=== PATIENT | female | born 1985 | race Caucasian/White ===

== ENCOUNTER 2018-03-10 21:43 | Emergency (ER) | payer SELFPAY ==
[2018-03-10] MEDS ORDERED: Lidocaine 2% Viscous Solution 15 ML Cup PO ONE (22:02)
[2018-03-10] MEDS ORDERED: Acetaminophen/HYDROcodone 325-7.5 MG Tab PO ONE (22:02)
[2018-03-10] MEDS ORDERED: Benzocaine 20% Topical Spray UD MUCMEM ONE (22:02)
--- NOTE | 2018-03-10 22:06 | EDM.PDOC ---
ED HPI GENERAL MEDICAL PROBLEM - General Chief Complaint: ENT Problem Stated Complaint: TOOTH PAIN Time Seen by Provider: 03/10/18 21:58 - History of Present Illness INITIAL COMMENTS - FREE TEXT/NARRATIVE: HISTORY AND PHYSICAL: History of present illness: The patient is a 32-year-old female who presents with history of a chronic cavity in her right lower molar that she's been putting off until she can get dental insurance and presents with increased pain in that area over the last 12- 24 hours. She has been using [id number] aspirin and she place some over- the-counter dental cement into the cavity and that gave her some relief. She saying that the pain is radiating to her face and her ear she's having no fever chills sore throat vomiting or diarrhea and she denies . Patient has not made an appointment yet with a local dentist. Review of systems: As per history of present illness and below otherwise all systems reviewed and negative. Past medical history: As per history of present illness and as reviewed below otherwise noncontributory. Surgical history: As per history of present illness and as reviewed below otherwise noncontributory. Social history: No reported history of drug or alcohol abuse. Family history: As per history of present illness and as reviewed below otherwise noncontributory. Physical exam: General: Well-developed well-nourished mildly overweight female who is nontoxic and somewhat anxious on my evaluation HEENT: Atraumatic, normocephalic, pupils reactive, negative for conjunctival pallor or scleral icterus, mucous membranes moist, throat clear, neck supple, nontender, trachea midline. There is no cervical adenopathy or nuchal rigidity. There are multiple old sober filling seen throughout the mouth and at the right lower molar area there is a tooth with a Cavity which has some whitish material within it consistent with the cement that the patient placed. There is no gum swelling but there is tenderness with tooth tap. Lungs: Clear to auscultation, breath sounds equal bilaterally, chest nontender. Heart: S1S2, regular rate and rhythm no overt murmurs Abdomen: Soft, nondistended, nontender. NABS Pelvis: Deferred Genitourinary: Deferred. Rectal: Deferred. Extremities: Atraumatic, negative for cords or calf pain. Neurovascular unremarkable. Neuro: Awake, alert, oriented. Cranial nerves II through XII unremarkable. Cerebellum unremarkable. Motor and sensory unremarkable throughout. Exam nonfocal. Diagnostics: [] Therapeutics: Dental balls [place] Impression: Dental pain due to caries Definitive disposition and diagnosis as appropriate pending reevaluation and review of above. 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: Musculoskeletal History: Reports: None Neurological History: Reports: None Psychiatric History: Reports: None Endocrine/Metabolic History: Reports: None Hematologic History: Reports: None Immunologic History: Reports: None Oncologic (Cancer) History: Reports: None Dermatologic History: Reports: None - Infectious Disease History Infectious Disease History: Reports: None - Past Surgical History Musculoskeletal Surgical History: Reports: Other (See Below) Other Musculoskeletal Surgeries/Procedures:: knee surgery Social & Family History - Family History Family Medical History: Noncontributory - Tobacco Use Smoking Status *Q: Current Every Day Smoker Years of Tobacco use: 15 Packs/Tins Daily: 1 - Caffeine Use Caffeine Use: Reports: Coffee - Recreational Drug Use Recreational Drug Use: No ED ROS GENERAL - Review of Systems Review Of Systems: ROS reveals no pertinent complaints other than HPI. ED EXAM, GENERAL - Physical Exam Exam: See Below (See dictation) Course - Vital Signs Last Recorded V/S: Last Vital Signs Temp 36.4 C 03/10/18 21:54 Pulse 88 03/10/18 21:54 Resp 18 03/10/18 21:54 BP 136/85 03/10/18 21:54 Pulse Ox 98 03/10/18 21:54 - Orders/Labs/Meds Orders: Active Orders 24 hr Category Date Time Status Acetaminophen/HYDROcodone [[place] 325-7.5 MG] Med 03/10/18 22:02 Once 1 tab PO ONETIME ONE Benzocaine [Hurricaine One 20%] Med 03/10/18 22:02 Once 2 each MUCMEM ONETIME ONE Lidocaine 2% [Xylocaine 2% Viscous] Med 03/10/18 22:02 Once 15 ml PO ONETIME ONE Departure - Departure Time of Disposition: 22:05 Disposition: Home, Self-Care 01 Condition: Good Clinical Impression: Pain due to dental caries - Discharge Information Referrals: PCP,None [Primary Care Provider] - Additional Instructions: The following information is given to patients seen in the emergency department who are being discharged to home. This information is to outline your options for follow-up care. We provide all patients seen in our emergency department with a follow-up referral. The need for follow-up, as well as the timing and circumstances, are variable depending upon the specifics of your emergency department visit. If you don't have a primary care physician on staff, we will provide you with a referral. We always advise you to contact your personal physician following an emergency department visit to inform them of the circumstance of the visit and for follow-up with them and/or the need for any referrals to a consulting specialist. The emergency department will also refer you to a specialist when appropriate. This referral assures that you have the opportunity for followup care with a specialist. All of these measure are taken in an effort to provide you with optimal care, which includes your followup. Under all circumstances we always encourage you to contact your private physician who remains a resource for coordinating your care. When calling for followup care, please make the office aware that this follow-up is from your recent emergency room visit. If for any reason you are refused follow-up, please contact the [facility] emergency department at and ask to speak to the emergency department charge nurse. [facility] Primary care- Internal Medicine and Family [address] [address] Please contact one of our local dentist for definitive care and treatment using the resources you have been given tonight and return to ER as needed and as discussed. If you start having facial swelling place ice on it. Use dental balls you have been given this evening as needed and also take [id number] ibuprofen/Aleve or Tylenol rather than aspirin products. Please taken a bite axial been prescribed the Insty Meds until they're finished, amoxicillin - My Orders Last 24 Hours: My Active Orders 03/10/18 22:02 Acetaminophen/HYDROcodone [[place] 325-7.5 MG] 1 tab PO ONETIME ONE Benzocaine [Hurricaine One 20%] 2 each MUCMEM ONETIME ONE Lidocaine 2% [Xylocaine 2% Viscous] 15 ml PO ONETIME ONE - Assessment/Plan Last 24 Hours: My Active Orders 03/10/18 22:02 Acetaminophen/HYDROcodone [[place] 325-7.5 MG] 1 tab PO ONETIME ONE Benzocaine [Hurricaine One 20%] 2 each MUCMEM ONETIME ONE Lidocaine 2% [Xylocaine 2% Viscous] 15 ml PO ONETIME ONE
[2018-03-10 22:24] VITALS: BP 118/85
== END 2018-03-10 22:35 | disposition home or self-care (01) ==
LOC: MW.ED 21:43
DX: K02.9 Dental caries, unspecified (principal); F17.210 Nicotine dependence, cigarettes, uncomplicated; Z79.899 Other long term (current) drug therapy; Z88.0 Allergy status to penicillin
CPT/HCPCS: 99283; A9270

== ENCOUNTER 2019-03-16 13:24 | Emergency (ER) | payer SELFPAY ==
[2019-03-16] MEDS ORDERED: cefTRIAXone 1 GM in Lidocaine 1% 4 ML IM STA (14:10)
--- NOTE | 2019-03-16 14:10 | EDM.PDOC ---
ED HPI GENERAL MEDICAL PROBLEM - General Chief Complaint: ENT Problem Stated Complaint: ABCESS Time Seen by Provider: 03/16/19 14:10 Source of Information: Reports: Patient History Limitations: Reports: No Limitations - History of Present Illness INITIAL COMMENTS - FREE TEXT/NARRATIVE: HISTORY AND PHYSICAL: History of present illness: Patient is a 33-year-old female here with complaint of dental abscess. She was started on amoxicillin 2 weeks ago for a right lower molar dental abscess. She states in the past couple of days the swelling has increased and she is having more pain. Has appointment with oromaxillary facial surgeon on 03/24 to have the tooth removed. She states she can't eat secondary to the pain. She reports she has difficulty swallowing because the pain but she is able to swallow her secretions and drink water. She is not having any difficulty breathing. Review of systems: As per history of present illness and below otherwise all systems reviewed and negative. Past medical history: As per history of present illness and as reviewed below otherwise noncontributory. Surgical history: As per history of present illness and as reviewed below otherwise noncontributory. Social history: No reported history of drug or alcohol abuse. Family history: As per history of present illness and as reviewed below otherwise noncontributory. Physical exam: General: Patient sitting comfortably in no acute distress and nontoxic appearing HEENT: Swelling of the right lower jaw without erythema or warmth. Poor dentition throughout. Pain to percussion of the right lower back molar. Atraumatic, normocephalic, pupils reactive, negative for conjunctival pallor or scleral icterus, mucous membranes moist, throat clear, neck supple, nontender, trachea midline. No meningeal signs. Lungs: Clear to auscultation, breath sounds equal bilaterally, chest nontender. Heart: S1S2, regular, negative for clicks, rubs, or overt murmur. Abdomen: Soft, nondistended, nontender. Negative for masses or hepatosplenomegaly. Negative for costovertebral tenderness. No rigidity, rebound , guarding. Pelvis: Stable nontender. Genitourinary: Deferred. Rectal: Deferred. Extremities: Atraumatic, negative for cords or calf pain. Neurovascular unremarkable. Neuro: Awake, alert, oriented. Cranial nerves II through XII unremarkable. Cerebellum unremarkable. Motor and sensory unremarkable throughout. Exam nonfocal. Notes: Diagnostics: None Therapeutics: Rocephin 1 g IM Dental balls Prescriptions: Clindamycin Tramadol (#12) Impression: Dental abscess, dentalgia Plan: 1. Take medication as instructed. Do not take tramadol while driving as it may make you drowsy 2. Follow up with dentist 3. Return to ED as needed as discussed Definitive disposition and diagnosis as appropriate pending reevaluation and review of above. 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: Musculoskeletal History: Reports: None Neurological History: Reports: None Psychiatric History: Reports: None Endocrine/Metabolic History: Reports: None Hematologic History: Reports: None Immunologic History: Reports: None Oncologic (Cancer) History: Reports: None Dermatologic History: Reports: None - Infectious Disease History Infectious Disease History: Reports: Chicken Pox - Past Surgical History Musculoskeletal Surgical History: Reports: Other (See Below) Other Musculoskeletal Surgeries/Procedures:: knee surgery Social & Family History - Family History Family Medical History: Noncontributory - Tobacco Use Smoking Status *Q: Current Every Day Smoker Years of Tobacco use: 20 Packs/Tins Daily: 1 - Caffeine Use Caffeine Use: Reports: Coffee, Soda - Recreational Drug Use Recreational Drug Use: No ED ROS ENT - Review of Systems Review Of Systems: ROS reveals no pertinent complaints other than HPI. ED EXAM, ENT - Physical Exam Exam: See Below (see dictation) Course - Vital Signs Last Recorded V/S: Last Vital Signs Temp 97.6 F 03/16/19 13:47 Pulse 91 03/16/19 13:47 Resp 20 03/16/19 13:47 BP 139/88 03/16/19 13:47 Pulse Ox 97 03/16/19 13:47 - Orders/Labs/Meds Meds: Medications Discontinued Medications Generic Name Dose Route Start Last Admin Trade Name Freq PRN Reason Stop Dose Admin Benzocaine 2 each 03/16/19 14:18 Hurricaine One 20% MUCMEM 03/16/19 14:19 ONETIME ONE Ceftriaxone Sodium 1 gm/ 4 mls @ 4 mls/sec 03/16/19 14:10 Lidocaine HCl IM 03/16/19 14:11 NOW STA Lidocaine HCl 15 ml 03/16/19 14:18 Xylocaine 2% Viscous PO 03/16/19 14:19 ONETIME ONE Departure - Departure Time of Disposition: 14:36 Disposition: Home, Self-Care 01 Condition: Good Clinical Impression: Dental abscess, Dentalgia - Discharge Information Prescriptions: Clindamycin HCl 300 mg PO TID 10 Days #30 capsule traMADol HCl [Tramadol HCl] 50 mg PO Q6H PRN #12 tablet PRN Reason: Pain (Severe 7-10) Forms: ED Department Discharge Additional Instructions: The following information is given to patients seen in the emergency department who are being discharged to home. This information is to outline your options for follow-up care. We provide all patients seen in our emergency department with a follow-up referral. The need for follow-up, as well as the timing and circumstances, are variable depending upon the specifics of your emergency department visit. If you don't have a primary care physician on staff, we will provide you with a referral. We always advise you to contact your personal physician following an emergency department visit to inform them of the circumstance of the visit and for follow-up with them and/or the need for any referrals to a consulting specialist. The emergency department will also refer you to a specialist when appropriate. This referral assures that you have the opportunity for follow-up care with a specialist. All of these measure are taken in an effort to provide you with optimal care, which includes your follow-up. Under all circumstances we always encourage you to contact your private physician who remains a resource for coordinating your care. When calling for follow-up care, please make the office aware that this follow-up is from your recent emergency room visit. If for any reason you are refused follow-up, please contact the [facility] Emergency Department at and asked to speak to the emergency department charge nurse. [facility] [address] [place] [address] [facility] [address] [place] [id number] 1. Take medication as instructed. Do not take tramadol while driving as it may make you drowsy 2. Follow up with dentist 3. Return to ED as needed as discussed
[2019-03-16] MEDS ORDERED: Benzocaine 20% Topical Spray UD MUCMEM ONE (14:18)
[2019-03-16] MEDS ORDERED: Lidocaine 2% Viscous Solution 15 ML Cup PO ONE (14:18)
[2019-03-16 15:16] VITALS: BP 117/68
== END 2019-03-16 15:17 | disposition home or self-care (01) ==
LOC: MW.ED 13:24
DX: K04.7 Periapical abscess without sinus (principal); F17.210 Nicotine dependence, cigarettes, uncomplicated; Z88.0 Allergy status to penicillin
CPT/HCPCS: 96372; 99282; A9270; J0696; J2001

== ENCOUNTER 2021-11-15 08:58 | Emergency (ER) | payer BC ==
[2021-11-15] MEDS ORDERED: Sodium Chloride 0.9% 10 ML Syringe FLUSH PRN (09:10)
[2021-11-15] MEDS ORDERED: Ketorolac 30 MG/ML SDV IVPUSH ONE (09:10)
[2021-11-15] MEDS ORDERED: Sodium Chloride 0.9% 2.5 ML Syringe FLUSH PRN (09:10)
[2021-11-15 10:05] LABS: BLOOD UREA NITROGEN,BUN 11 mg/dL (7.0-18.0); CARBON DIOXIDE,CO2 20.4 mmol/L (21.0-32.0); CHLORIDE,CL 104 mmol/L (98-107); GLUCOSE RANDOM 90 mg/dL (74-106); POTASSIUM,K 3.9 mmol/L (3.5-5.1); SODIUM,NA 140 mmol/L (136-145)
[2021-11-15 11:26] VITALS: BP 128/62; PULSE 78
== END 2021-11-15 11:10 | disposition home or self-care (01) ==
LOC: MW.ED 08:58
DX: K04.7 Periapical abscess without sinus (principal); R07.89 Other chest pain; R11.0 Nausea; R19.7 Diarrhea, unspecified; R06.00 Dyspnea, unspecified; Z88.0 Allergy status to penicillin
CPT/HCPCS: 36415; 71045; 80053; 84484; 85025; 85379; 93005; 96374; 99285; J1885

== ENCOUNTER 2023-02-02 08:19 | Emergency (ER) | payer BC ==
[2023-02-02 08:54] LABS: BASOPHILS PERCENT AUTO 0.2 % (0.0-1.5); EOSINOPHILS ABSOLUTE AUTO 0.1 K/uL (0.0-0.7); EOSINOPHILS PERCENT AUTO 0.6 % (0.0-7.0); HEMATOCRIT 42.7 % (36.0-46.0); HEMOGLOBIN 14.3 g/dL (12.0-16.0); LYMPHOCYTES ABSOLUTE AUTO 1.9 K/uL (0.6-2.4); LYMPHOCYTES PERCENT AUTO 13.1 % (16.0-40.0); MEAN CORPUSCULAR HEMOGLOBIN 27.3 pg (27.0-32.0); MEAN CORPUSCULAR HGB CONC 33.5 g/dL (31.0-37.0); MEAN CORPUSCULAR VOLUME 81.5 fL (80.0-98.0); MONOCYTES PERCENT AUTO 7.1 % (0.0-15.0); NEUTROPHILS ABSOLUTE AUTO 11.2 K/uL (1.4-5.7); NRBC ABSOLUTE 0 K/uL; PLATELET COUNT,PLT 398 K/uL (150-400); RED BLOOD CELL COUNT 5.24 M/uL (4.30-5.90); WHITE BLOOD CELL COUNT,WBC 14.15 K/uL (4.0-11.0)
[2023-02-02 09:20] LABS: A/G RATIO 0.8 (0.9-1.6); ALANINE AMINOTRANSFERASE,ALT 30 IU/L (14-63); ALBUMIN 3.4 g/dL (3.4-5.0); ALKALINE PHOSPHATASE 80 U/L (46-116); ASPARTATE AMNIOTRANSFERASE,AST 16 IU/L (15-37); BILIRUBIN TOTAL 0.3 mg/dL (0.2-1.0); BLOOD UREA NITROGEN,BUN 8 mg/dL (7.0-18.0); CALCIUM 9.1 mg/dL (8.5-10.1); CARBON DIOXIDE,CO2 21.3 mmol/L (21.0-32.0); CHLORIDE,CL 104 mmol/L (98-107); CREATININE 0.7 mg/dL (0.6-1.0); EST CRCL DRUG DOSING (CG) 120.15 mL/min; GLUCOSE RANDOM 107 mg/dL (74-106); POTASSIUM,K 4.4 mmol/L (3.5-5.1); PROTEIN TOTAL,TP 7.7 g/dL (6.4-8.2); SODIUM,NA 139 mmol/L (136-145)
[2023-02-02 09:23] LABS: ESTIMATED GFR 115 mL/min (>60)
[2023-02-02 11:53] VITALS: BP 124/62; PULSE 74
== END 2023-02-02 11:52 | disposition home or self-care (01) ==
LOC: MW.ED 08:19
DX: R07.9 Chest pain, unspecified (principal); R20.2 Paresthesia of skin; F17.210 Nicotine dependence, cigarettes, uncomplicated
CPT/HCPCS: 36415; 71045; 71045-26; 80053; 84484; 85025; 85379; 93005; 99285